=== PATIENT | female | born 1985 | race African-American/Black ===

== ENCOUNTER 2017-08-31 16:13 | Emergency (ER) | payer OTHER ==
[~2017-08-31] VITALS: Ht 193 cm; Wt 117.9 kg
--- NOTE | ~2017-08-31 | EKG ---
[facility] [address] [facility] [place] [address] ELECTROCARDIOGRAM REPORT Name: CHRIS JUSTICE Room #: [facility]P [facility]ENTER[facility] [id number] Admission: 08/31/17 Attend Phys: Discharge: 08/31/17 Date of : 83 Report #: [id number] THIS REPORT FOR: //name// [facility] ED Test Date: 2017-08-31 Test Time: 16:22:16 Pat Name: CHRIS JUSTICE Department: Room: Gender: F Production Internship: SURENDRA : 1985 Requested By: Valerio Munoz Order Number: [id number] MD: Ronal Andrew Measurements Intervals [place] Rate: 70 P: 65 VA: 206 QRS: 64 QRSD: 79 T: 17 QT: 363 QTc: 392 Interpretive Statements Sinus rhythm Borderline prolonged VA interval No previous ECG available for comparison Electronically Signed On 09-01-2017 8:10:46 [employer] by Ronal Andrew [email or web address] <ELECTRONICALLY SIGNED> By: Ronal Andrew MD, [facility] 09/01/17 0810 1622 1622 Ronal Andrew MD, FACC /EPI
[~2017-08-31 16:13] MED LIST: AMBIEN 10 MG TA10 MG PO; BACTRIM DS TAB1 EACH PO; BUDEPRION SR150 MG PO; CLONAZEPAM 1 MG1 M1 PO; GEODON60 MG PO; NICOTINE TRANSD21 M1 TD; NORCO 5-325 TA1 EACH PO; PHENERGAN 25 MG25 M1 PO; PRENATA CHEWAB1 EACH PO; REVIA 50 MG TAB50 M1 PO; TOPROL XL50 MG PO; TRAZODONE 150150 M1 PO; VIIBRYD1 EACH PO
[2017-08-31 17:11] LABS: HEMATOCRIT 37.3 % (37.0-47.0); HEMOGLOBIN 12.8 gm/dL (12.0-15.0); MCH 30.6 pg (26.0-34.0); MCHC 34.3 g/dL (28.0-37.0); MCV 89.2 fL (80.0-100.0); RBC 4.18 mil/uL (4.20-5.00); RDW 13.5 % (10.5-14.5); WBC 9.3 thou/uL (4.0-11.0)
[2017-08-31 17:18] LABS: ANION GAP 6 mmol/L (7-16); BUN 13 mg/dL (7-18); CALCIUM 9.2 mg/dL (8.5-10.1); CHLORIDE 105 mmol/L (98-107); CO2 30 mmol/L (21-32); GLUCOSE 59 mg/dL (74-106); POTASSIUM 3.4 mmol/L (3.5-5.1); SODIUM 141 mmol/L (136-145)
[2017-08-31 17:26] LABS: ALBUMIN 3.4 g/dL (3.4-5.0); SGOT 15 U/L (15-37); SGPT 21 U/L (30-65); TOTAL BILIRUBIN 0.6 mg/dL (<0.1-1.0); TOTAL PROTEIN 7.4 g/dL (6.4-8.2); TROPONIN-I < 0.04 ng/mL (<0.06)
== END 2017-08-31 20:07 | disposition home or self-care (01) ==
LOC: ER 16:13
PROVIDERS: Emergency Medicine
DX: R07.9 Chest pain, unspecified (principal); G40.909 Epilepsy, unspecified, not intractable, without status epilepticus; F17.210 Nicotine dependence, cigarettes, uncomplicated

== ENCOUNTER 2018-06-14 07:59 | Emergency (ER) | payer OTHER ==
[~2018-06-14] VITALS: Ht 193 cm; Wt 116.1 kg
[2018-06-14] MEDS ORDERED: IBUPROFEN 400400 M2 PO (08:44)
[2018-06-14 09:04] LABS: ABSOLUTE NEUTROPHILS 3.7 thou/uL (1.4-8.2); BASOPHILS 0.8 % (0.0-2.0); EOSINOPHILS 2.3 % (0.0-3.0); HEMATOCRIT 39.1 % (37.0-47.0); HEMOGLOBIN 13.1 gm/dL (12.0-15.0); LYMPHOCYTES 27.5 % (24.0-44.0); MCH 30.3 pg (26.0-34.0); MCHC 33.4 g/dL (28.0-37.0); MCV 90.8 fL (80.0-100.0); MONOCYTES 8.3 % (1.0-8.0); PLATELET COUNT 156 thou/uL (150-400); POLYS 61.1 % (36.0-66.0); RBC 4.31 mil/uL (4.20-5.00)
[2018-06-14 09:09] LABS: POTASSIUM 3.7 mmol/L (3.5-5.1)
[2018-06-14 09:36] VITALS: BP 143/81
== END 2018-06-14 09:50 | disposition home or self-care (01) ==
LOC: ER 07:59
PROVIDERS: Student in an Organized Health Care Education/Training Program
DX: J09.X2 Influenza due to identified novel influenza A virus with other respiratory manifestations (principal); F90.9 Attention-deficit hyperactivity disorder, unspecified type; F31.9 Bipolar disorder, unspecified; F20.9 Schizophrenia, unspecified; F17.210 Nicotine dependence, cigarettes, uncomplicated